=== PATIENT | male | born 1945 ===

== ENCOUNTER 2018-02-17 18:28 | Inpatient (IN) | payer MEDICARE ==
--- NOTE | 2018-02-17 20:52 | ED PDOC ---
HPI: Psych/Substance Abuse Time Seen by Provider: 02/17/18 19:12 Chief Complaint (Nursing): Psychiatric Evaluation History Per: Patient, Family History/Exam Limitations: no limitations Onset/Duration Of Symptoms: Days Current Symptoms Are (Timing): Still Present Modifying Factor(s): None Additional Complaint(s): Hx of vascular dementia, HTN, HLD, Alzheimer's brought in by family for psychiatric evaluation, family states that he has had a progressive decline in mental status over the past few months, repeating himself, sleeping during the day and staying up at night. Family states he has been increasingly more withdrawn, tired. States he complains of headaches and sleepiness. Denies chest pain, shortness of breath, or other symptoms currently. Past Medical History Reviewed: Historical Data, Nursing Documentation, Vital Signs Vital Signs: Last Vital Signs Temp 98.1 F 02/17/18 18:53 Pulse 70 02/17/18 18:53 Resp 18 02/17/18 18:53 BP 167/110 H 02/17/18 18:53 Pulse Ox 99 02/17/18 18:53 - Medical History PMH: Dementia, HTN - Family History Family History: States: Unknown Family Hx - Home Medications Home Medications: Ambulatory Orders Medication Instructions Recorded Amitriptyline [Elavil] 10 mg PO DAILY 02/17/18 Apixaban [Eliquis] 5 mg PO DAILY 02/17/18 Carvedilol [Coreg] 6.25 mg PO DAILY 02/17/18 Escitalopram [Lexapro] 10 mg PO DAILY 02/17/18 Lisinopril [Zestril] 10 mg PO DAILY 02/17/18 Meclizine [Antivert] 12.5 mg PO DAILY 02/17/18 Simvastatin [Simvastatin] 20 mg PO DAILY 02/17/18 Latanoprost 0.005% Opht [Xalatan 1 drop BOTHEYES HS 02/18/18 Opht] Amitriptyline [Elavil] 10 mg PO DAILY 02/19/18 Amitriptyline [Elavil] 50 mg PO HS 02/19/18 Bimatoprost [Lumigan] ml OP 02/19/18 Donepezil [Aricept] 5 mg PO HS 02/19/18 Gabapentin [Neurontin] 200 mg PO DAILY 02/19/18 Memantine [Namenda] 10 mg PO BID 02/19/18 Simvastatin [Zocor] 40 mg PO HS 02/19/18 Timolol 0.5% Ophth [Timoptic 0.5% 1 drop OU BID 02/19/18 Ophth Soln] - Allergies Allergies/Adverse Reactions: Allergies Allergy/AdvReac Type Severity Reaction Status Date / Time No Known Allergies Allergy Verified 02/18/18 04:45 Review of Systems ROS Statement: Except As Marked, All Systems Reviewed And Found Negative Neurological: Positive for: Confusion. Negative for: Numbness, Incoordination, Dizziness Physical Exam - Reviewed Nursing Documentation Reviewed: Yes Vital Signs Reviewed: Yes - Physical Exam Appears: Positive for: Well, Non-toxic, No Acute Distress Head Exam: Positive for: ATRAUMATIC, NORMAL INSPECTION, NORMOCEPHALIC Skin: Positive for: Normal Color, Warm, DRY Eye Exam: Positive for: EOMI, Normal appearance, PERRL ENT: Positive for: Normal ENT Inspection Neck: Positive for: Normal, Painless ROM Cardiovascular/Chest: Positive for: Regular Rate, Rhythm Respiratory: Positive for: CNT, Normal Breath Sounds Gastrointestinal/Abdominal: Positive for: Normal Exam, Soft Back: Positive for: Normal Inspection Extremity: Positive for: Normal ROM Neurologic/Psych: Positive for: Alert, enterprise business architect II-XII, Oriented, Mood/Affect ( withdrawn). Negative for: Motor/Sensory Deficits - Laboratory Results Result Diagrams: 02/18/18 06:04 02/17/18 20:40 - ECG O2 Sat by Pulse Oximetry: 99 Pulse Ox Interpretation: Normal Medical Decision Making Medical Decision MakinPM A/P: Hx of vascular dementia, HTN, HLD presenting with progressive cognitive decline -patient stable at this time, although widthdrawn into himself -patient will require medical clearance -will need crisis to evaluate -no SI/HI 2136 --CT head FINDINGS: Brain: [id number]-[id number] atrophy. No intracranial hemorrhage. No mass. No definite edema. Ventricles: No hydrocephalus. Bones/joints: No acute fracture. Soft tissues: Unremarkable. Vasculature: Minimal atherosclerotic disease of intracranial arteries. Sinuses: Scattered minimal to mild mucosal thickening. Mastoid air cells: No mastoid effusion. Orbits: Unremarkable as visualized. IMPRESSION: 1. No definite acute intracranial abnormality. 2. Incidental/non-acute findings are described above EKG shows afib, patient has a hx of "cardiac arrhythmia" on eliquis for it. Patient medically cleared for psychiatric admission. Patient accepted by [facility] Borja under Dr. Ruth with dx: of dementia. Disposition - Clinical Impression Clinical Impression: Dementia - Disposition Disposition: Routine/Home Disposition Time: 22:59 Condition: STABLE
[2018-02-17 21:12] LABS: BASO # 0.1 K/uL (0.0-0.2); BASO % 0.6 % (0.0-2.0); EOS # 0.5 K/uL (0.0-0.7); EOS % 4.7 % (0.0-4.0); HEMOGLOBIN 15.5 g/dL (12.0-18.0); LYMPH # 3.2 K/uL (1.0-4.3); LYMPH % 28.3 % (20.0-40.0); MEAN CELL VOLUME 85.6 fl (80.0-94.0); MEAN CORPUSCULAR HEMOGLOBIN 28.7 pg (27.0-31.0); MEAN CORPUSCULAR HGB CONC 33.5 g/dL (33.0-37.0); MEAN PLATELET VOLUME 10.3 fl (7.2-11.7); MONO % 9.2 % (0.0-10.0); NEUT # 6.5 K/uL (1.8-7.0); NEUT % 57.2 % (50.0-75.0); NRBC % 0.1 % (0.0-0.0); RBC 5.41 Mil/uL (4.40-5.90); RED CELL DISTRIBUTION WIDTH 14.3 % (11.5-14.5); WHITE BLOOD COUNT 11.3 K/uL (4.8-10.8)
[2018-02-17 21:15] LABS: SQUAMOUS EPITHIAL 1 /hpf (0-5); URINE BACTERIA RARE (<OCC); URINE BILIRUBIN NEGATIVE (NEGATIVE); URINE BLOOD LARGE (NEGATIVE); URINE CLARITY SLIGHTY-CLOUDY (Clear); URINE COLOR YELLOW (YELLOW); URINE GLUCOSE (UA) NEG (Normal); URINE LEUKOCYTE ESTERASE NEG Leu/uL (Negative); URINE PROTEIN 30 mg/dL (NEGATIVE); URINE UROBILINOGEN 0.2-1.0 mg/dL (0.2-1.0)
[2018-02-17 21:22] LABS: ACETAMINOPHEN < 10.0 ug/ml (10.0-30.0); BLOOD UREA NITROGEN 15 mg/dl (9-20); CALCIUM 9.9 mg/dL (8.4-10.2); GFR AFRICAN-AMERICAN > 60; GFR NON-AFRICAN AMERICAN > 60; SALICYLATE < 1.0 mg/dl
[2018-02-17 21:31] LABS: BARBITURATES, UR NEGATIVE (NEGATIVE); BENZODIAZEPINES, UR NEGATIVE (NEGATIVE); OPIATES, UR NEGATIVE (NEGATIVE); PHENCYCLIDINE, UR NEGATIVE (NEGATIVE)
--- NOTE | 2018-02-17 21:36 | CT ---
EXAM: CT Head Without Intravenous Contrast CLINICAL HISTORY: 72 years old, male; Signs and symptoms; Alteration of consciousness and altered mental status/memory loss and other: Increasing AMS confused; Other: Vascular dementia; Patient HX: HTN hld alzheimer's dementia; Additional info: Increasing confusion, HX of vascluar demtia TECHNIQUE: Axial computed tomography images of the head/brain without intravenous contrast. All CT scans at this facility use one or more dose reduction techniques, viz.: automated exposure control; ma/kV adjustment per patient size (including targeted exams where dose is matched to indication; i.e. head); or iterative reconstruction technique. Coronal and sagittal reformatted images were created and reviewed. COMPARISON: No relevant prior studies available. FINDINGS: Brain: Mqpw-za-glcauppi atrophy. No intracranial hemorrhage. No mass. No definite edema. Ventricles: No hydrocephalus. Bones/joints: No acute fracture. Soft tissues: Unremarkable. Vasculature: Minimal atherosclerotic disease of intracranial arteries. Sinuses: Scattered minimal to mild mucosal thickening. Mastoid air cells: No mastoid effusion. Orbits: Unremarkable as visualized. IMPRESSION: 1. No definite acute intracranial abnormality. 2. Incidental/non-acute findings are described above.
[2018-02-17 23:31] VITALS: O2SAT 99
[2018-02-18] MEDS ORDERED: Magnesium Hydroxide Susp 30 ml UD PO PRN (04:04)
[2018-02-18] MEDS ORDERED: Bismuth Subsalicylate 262 mg/15 ml Sus (240 ml) PO PRN (04:04)
[2018-02-18] MEDS ORDERED: Alum-Mag Hydrox-Simethicone Susp (30 mL) PO PRN (04:04)
--- NOTE | 2018-02-18 04:22 | PCM.BM ---
<AilinSaulMatt Montelongo - Last Filed: 02/18/18 04:21> Treatment Plan Problems - Problems identified on initial assessmt Hopelessness/Helplessness Date Initiated: 02/18/18 Time Initiated: 04:21 Assessment reference: NA Status: Active Treatment assets and liabiliti Patient Assests: adapts well, cooperative, good support system, negotiates basic needs Patient Liabilities: imparied memory - Milieu Protocol Maintain good personal hygiene: daily Encourage regular showers, daily Remind patient to perform daily oral care, daily Assist patient to perform ADL's Conduct patient checks and document Observation sheet: Q15 minutes Maintain personal safety: every shift Educate patient to report safety concerns to staff, every shift Monitor environment for contraband/sharps Medication safety: Monitor for expected outcome, potential side effects: every shift, Assess barriers to learning: every shift, Assess readiness for medication education: every shift <Cindy Carlton - Last Filed: 02/19/18 09:23> - Diagnosis (1) Dementia with behavioral disturbance Status: Acute Interventions: Medication management, Individual and group therapy, Psychoeducation 02/19/18 09:23 (2) Depressive disorder Status: Acute Interventions: Medication management, Individual and group therapy, Psychoeducation 02/19/18 09:23 <Jessica Duffy M - Last Filed: 02/19/18 12:54> Family Contact Family involvement: Family/SO is involved Family contact: Patient agrees to contact, Family has been contacted by patient , Telephone contact initiated by staff Family contact name: Wilbert (brother) Family contacted how many times per week?: 2 - Outside Agency Dr. Irasema Souza MD Care involvment: Information-sharing Agency contact number: [phone] - Goals for Treatment Patient goals for treatment: Pt to be encouraged to attend activity and clinical groups 3-5x per week to identify at least 2 contributing factors to depression and suicide attempt. Psycho-education to be provided to patient/ family regarding benefits of medications and treatment adherence. Pt to be encouraged to participate in group milieu to develop effective coping skills to reduce depression and free of suicide ideation. Coordinate discharge resource needs by providing referral for psychiatric treatment follow up in the community. Discharge/Continuing Care - Education Needs Education Needs: Family Medication, Family Diagnosis/Disease Process, Family Coping Skills, Family Placement options, Family Community resources, Family Activities of Daily Living, Family Personal Hygiene/Grooming, Family Aftercare Safety Plan, Patient Medication, Patient Diagnosis/Disease Process, Patient Coping Skills, Patient Placement options, Patient Community resources, Patient Activities of Daily Living, Patient Personal Hygiene/Grooming, Patient Aftercare Safety Plan - Discharge Discharge Criteria: Tolerates medication w/o severe side effects, Free of agitation, Normal sleep pattern, Ability to care for self, Reduction of target symptoms Discharge to:: Home, With Family - Additional Comments 02/19/18 12:31 Pt seen and discussed in team meeting. Reason for hospitalization reviewed and discussed at length. Pt reported he was referred to the ED by his [facility] psychiatrist, Dr. Irasema Souza MD. Pt reported feeling depressed due to increased memory loss and confusion. Pt reported that he is aware that he is forgetting things and that he cannot leave the house alone. Pt reported that he is tired of his family always having to be with him and telling him what to do. Pt reported that he has been seeing a psychiatrist and a neurologist; however, he feels like his memory is worsening. Pt reported compliance with medication prior to hospitalization; however, cannot recall the name of his medications. Pt 's social and medical issues reviewed and discussed. Pt's medications reviewed and pt's pharmacy provided. RN to contact pharmacy and obtain list of most recent medications. Tx plan reviewed; pt agreeable. Pt provided appeals writer with written consent to speak to his brother, Wilbert and verbal authorization to speak to his psychiatrist, Dr. Harley MD. SW to continue to follow case. - Treatment Team Participation Discussed with Family/SO: No Was Patient/Family/SO present at Treatment Team Meeting: Yes
[2018-02-18 07:34] LABS: HEMOGLOBIN 14.9 g/dL (12.0-18.0); MEAN CELL VOLUME 86.4 fl (80.0-94.0); MEAN CORPUSCULAR HEMOGLOBIN 28.5 pg (27.0-31.0); RBC 5.22 Mil/uL (4.40-5.90); RED CELL DISTRIBUTION WIDTH 14.2 % (11.5-14.5); WHITE BLOOD COUNT 8.3 K/uL (4.8-10.8)
[2018-02-18 08:05] LABS: T4 7.98 ug/dl (5.5-11.0)
[2018-02-18 08:22] LABS: FERRITIN 94.6 ng/Ml (17.9-464)
[2018-02-18] MEDS ORDERED: Patient's Own Med (Simvastatin [Simvastatin] 20 MG) PO SCH (09:00)
--- NOTE | 2018-02-18 09:11 | RAD ---
PROCEDURE: CHEST RADIOGRAPH, 1 VIEW HISTORY: confused COMPARISON: None available. FINDINGS: LUNGS: The lungs are hyperinflated and there is peribronchial thickening with chronic changes in both lungs. No focal consolidation. PLEURA: No pneumothorax or pleural fluid seen. CARDIOVASCULAR: Normal. OSSEOUS STRUCTURES: No significant abnormalities. VISUALIZED UPPER ABDOMEN: Normal. OTHER FINDINGS: None. IMPRESSION: No active pulmonary disease. COPD.
[2018-02-18 09:54] LABS: IRON 103 ug/dL (49-181)
[2018-02-18 10:03] LABS: % IRON SATURATION 34 % (20-55); TOTAL IRON BINDING CAPACITY 306 ug/dL (250-450)
--- NOTE | 2018-02-18 13:23 | CP.PCM.CON ---
History of Present Illness - History of Present Illness History of Present Illness: CC: Dementia This is a 72 year old male with past medical history of chronic atrial fibrillation anticoagulated on Eliquis, essential hypertension, hyperlipidemia, prostate cancer for many years, and Alzheimer's dementia, who was admitted to inpatient psychiatry for progressively worsening deline in his mental functioning over the last several months. The patient is denying any new recent illnesses or problems, however history taking is limited due to his dementia. He denies any chest pain, shortness of breath, palpitatoins, nausea, vomiting, diarrhea currently. Review of Systems - Review of Systems Review of Systems: A 12 point review of systems was conducted and found to be negative other than what was mentioned in the HPI. Past Patient History - Past Social History Smoking Status: Former Smoker - CARDIAC Hx Atrial Fibrillation: Yes Hx Hypercholesterolemia: Yes Hx Hypertension: Yes - PULMONARY Hx Tuberculosis: No - NEUROLOGICAL Hx Dementia: Yes - HEMATOLOGICAL/ONCOLOGICAL Hx Cancer: Yes (history of prostate Ca) - MUSCULOSKELETAL/RHEUMATOLOGICAL Hx Falls: No - GASTROINTESTINAL Hx Gastrointestinal Disorders: Yes - GENITOURINARY/GYNECOLOGICAL Hx Prostate Cancer: Yes (history) - PSYCHIATRIC Hx Substance Use: Yes (history of cocaine use) - ANESTHESIA Hx Anesthesia: Yes Meds Allergies/Adverse Reactions: Allergies Allergy/AdvReac Type Severity Reaction Status Date / Time No Known Allergies Allergy Verified 02/18/18 04:45 - Medications Medications: Current Medications Acetaminophen (Tylenol 325mg Tab) 650 mg PO Q4 PRN PRN Reason: Pain, moderate (4-7) Al Hydrox/Mg Hydrox/Simethicone (Maalox Plus 30 Ml) 30 ml PO Q4 PRN PRN Reason: Dyspepsia Apixaban (Eliquis) 5 mg PO DAILY [facility] PRN Reason: Protocol Last Admin: 02/18/18 09:42 Dose: 5 mg Atorvastatin Calcium (Lipitor) 10 mg PO DAILY [facility] Last Admin: 02/18/18 09:45 Dose: 10 mg Bismuth Subsalicylate (Pepto-Bismol) 524 mg PO Q4 PRN PRN Reason: Diarrhea Carvedilol (Coreg) 6.25 mg PO DAILY [facility] Last Admin: 02/18/18 09:45 Dose: 6.25 mg Lisinopril (Zestril) 10 mg PO DAILY [facility] Last Admin: 02/18/18 09:44 Dose: 10 mg Lorazepam (Ativan) 0.5 mg PO HS PRN PRN Reason: Insomnia Stop: 03/04/18 04:05 Lorazepam (Ativan) 0.5 mg PO Q6 PRN PRN Reason: Anixety/Agitation Stop: 03/04/18 04:05 Magnesium Hydroxide (Milk Of Magnesia) 30 ml PO HS PRN PRN Reason: Constipation Meclizine HCl (Antivert) 12.5 mg PO DAILY [facility] Physical Exam - Additional Findings Additional findings: Physical exam: Constitutional- cooperative, awake, alert Head- NCAT, PERRL Eye- PERRL, EOMI ENT- normal exam, MMM. Neck- normal inspection, supple, no JVD Respiratory- CTAB, no wheezes rales rhonchi Cardiovascular- irregular rate and rhythm, +S1, +S2 no MRG GI/Abdominal- normal bowel sounds, soft, no mass, no hsm Skin- warm, dry Extremities Exam- normal capillary refill, normal inspection Neurological Exam- alert, awake, oriented Psych- normal mood, normal affect Results - Vital Signs Recent Vital Signs: Last Vital Signs Temp 97.2 F L 02/18/18 06:00 Pulse 79 02/18/18 09:45 Resp 18 02/18/18 06:00 BP 144/90 02/18/18 12:00 Pulse Ox 99 02/17/18 23:37 - Labs Result Diagrams: 02/18/18 06:04 02/17/18 20:40 Labs: Laboratory Results - last 24 hr 02/17/18 02/17/18 02/17/18 20:40 20:40 20:40 WBC 11.3 H RBC 5.41 Hgb 15.5 Hct 46.3 MCV 85.6 MCH 28.7 MCHC 33.5 RDW 14.3 Plt Count 204 MPV 10.3 Neut % (Auto) 57.2 Lymph % (Auto) 28.3 [place] % (Auto) 9.2 Eos % (Auto) 4.7 H Baso % (Auto) 0.6 Neut # (Auto) 6.5 Lymph # (Auto) 3.2 [place] # (Auto) 1.0 H Eos # (Auto) 0.5 Baso # (Auto) 0.1 Sodium 144 Potassium 3.8 Chloride 102 Carbon Dioxide 24 Anion Gap 22 H BUN 15 Creatinine 0.7 L Est GFR ( Amer) > 60 Est GFR (Non-Af Amer) > 60 Random Glucose 132 H Calcium 9.9 Iron TIBC % Saturation Ferritin Triglycerides Cholesterol LDL Cholesterol Direct HDL Cholesterol Vitamin B12 Free T4 Thyroxine (T4) TSH 3rd Generation Urine Color Urine Clarity Urine pH Ur Specific [place] Urine Protein Urine Glucose (UA) Urine Ketones Urine Blood Urine Nitrate Urine Bilirubin Urine Urobilinogen Ur Leukocyte Esterase Urine RBC (Auto) Urine Microscopic WBC Ur Squamous Epith Cells Urine Bacteria Salicylates < 1.0 Urine Opiates Screen Urine Methadone Screen Acetaminophen < 10.0 L Ur Barbiturates Screen Ur Phencyclidine Scrn Ur Amphetamines Screen U Benzodiazepines Scrn U Oth Cocaine Metabols U Cannabinoids Screen Alcohol, Quantitative < 10 02/17/18 02/17/18 02/18/18 20:40 20:40 06:04 WBC 8.3 RBC 5.22 Hgb 14.9 Hct 45.1 MCV 86.4 MCH 28.5 MCHC 33.0 RDW 14.2 Plt Count 188 MPV Neut % (Auto) Lymph % (Auto) [place] % (Auto) Eos % (Auto) Baso % (Auto) Neut # (Auto) Lymph # (Auto) [place] # (Auto) Eos # (Auto) Baso # (Auto) Sodium Potassium Chloride Carbon Dioxide Anion Gap BUN Creatinine Est GFR ( Amer) Est GFR (Non-Af Amer) Random Glucose Calcium Iron TIBC % Saturation Ferritin Triglycerides Cholesterol LDL Cholesterol Direct HDL Cholesterol Vitamin B12 Free T4 Thyroxine (T4) TSH 3rd Generation Urine Color Yellow Urine Clarity Slighty-cloudy Urine pH 5.0 Ur Specific [place] 1.021 Urine Protein 30 Urine Glucose (UA) Neg Urine Ketones Negative Urine Blood Large Urine Nitrate Negative Urine Bilirubin Negative Urine Urobilinogen 0.2-1.0 Ur Leukocyte Esterase Neg Urine RBC (Auto) 40 H Urine Microscopic WBC 1 Ur Squamous Epith Cells 1 Urine Bacteria Rare Salicylates Urine Opiates Screen Negative Urine Methadone Screen Negative Acetaminophen Ur Barbiturates Screen Negative Ur Phencyclidine Scrn Negative Ur Amphetamines Screen Negative U Benzodiazepines Scrn Negative U Oth Cocaine Metabols Negative U Cannabinoids Screen Negative Alcohol, Quantitative 02/18/18 02/18/18 02/18/18 06:04 06:04 06:04 WBC RBC Hgb Hct MCV MCH MCHC RDW Plt Count MPV Neut % (Auto) Lymph % (Auto) [place] % (Auto) Eos % (Auto) Baso % (Auto) Neut # (Auto) Lymph # (Auto) [place] # (Auto) Eos # (Auto) Baso # (Auto) Sodium Potassium Chloride Carbon Dioxide Anion Gap BUN Creatinine Est GFR ( Amer) Est GFR (Non-Af Amer) Random Glucose Calcium Iron 103 TIBC 306 % Saturation 34 Ferritin 94.6 Triglycerides 140 Cholesterol 181 LDL Cholesterol Direct 106 HDL Cholesterol 35 Vitamin B12 461 Free T4 1.03 Thyroxine (T4) 7.98 TSH 3rd Generation 1.64 Urine Color Urine Clarity Urine pH Ur Specific [place] Urine Protein Urine Glucose (UA) Urine Ketones Urine Blood Urine Nitrate Urine Bilirubin Urine Urobilinogen Ur Leukocyte Esterase Urine RBC (Auto) Urine Microscopic WBC Ur Squamous Epith Cells Urine Bacteria Salicylates Urine Opiates Screen Urine Methadone Screen Acetaminophen Ur Barbiturates Screen Ur Phencyclidine Scrn Ur Amphetamines Screen U Benzodiazepines Scrn U Oth Cocaine Metabols U Cannabinoids Screen Alcohol, Quantitative Assessment & Plan - Assessment and Plan (Free Text) Plan: ASSESSMENT/PLAN 1) Chronic atrial fibrillation - Continue Eliquis 5 mg po daily - Continue Coreg 6.25 mg po daily for rate control - stable 2) Hyperlipidemia Continue Lipitor 10 mg po daily 3) Essential hypertension - Continue Lisinopril 10 mg po daily - Coreg 4) Prostate cancer, chronic - evidence of hematuria in urinalysis, likely from Eliquis - Hg stable 5) Alzheimer's dementia with progressive decline - management as per psychiatry
[2018-02-18] MEDS ORDERED: guaiFENesin DM 200 mg-20 mg/10 ml UD PO PRN (17:26)
[2018-02-18] MEDS: Latanoprost 0.005% Opht SOUTION OU SCH (21:17)
--- NOTE | 2018-02-19 09:00 | CARD ---
APPROVED REPORT EKG Measurement Heart [id number] <Conclusion> Atrial fibrillation Abnormal ECG
--- NOTE | 2018-02-19 11:12 | PCM.PSYCH ---
Initial Psychiatric Evaluation - Initial Psychiatric Evaluation Type of Admission: Voluntary Legal Status: Capacity Chief Complaint (in patient's own words): "I'm depressed." Patient's Reaction to Hospitalization: HPI: 72 yo male w/ h/o Vascular Dementia, presents with worsening depression, memory loss, decline in functioning and irritability. As per note sent by patient's psychiatrist, patient presented w/ depressed mood, anhedonia, hopelessness, helplessness, fatigue, poor attention and concentration, insomnia and complete lack of motivation. No AH/VH/paranoia/SI/HI. Patient seems to have poor compliance with medications due to memory deficits. Collateral from ER: CW (CESAR) met with pt's nephew, Fran Webb [phone], whom reported that he brought pt in today because he was referred by his psychiatrist (Irasema Souza) as she has concerns for pt's safety. Mr. Webb reported amalia pt has Vascular Dementia. As per Mr. Webb, pt presented has reported depressed mood, anhedonia, hopelessness, helplessness, fatigue poor attention and concentration, insomnia, and complete lack of motivation. Pt's nephew showed CW records of recent visit to the neurologist (Maria Elena Lebron M.D) who wrote on a medical report stating that pt presented with memory loss, reported feeling confused in very occasions , and he talks repeatedly about the same subject, and he is having frequent nightmares, and possible visual hallucinations. Pt's nephew reported that the family is doing the best they can to provide assistance to pt in relation to his medical and psychiatric problems , but they are concern that pt would cannot long care for himself, in safely manner. PPHx: H/o outpatient treatment w. Dr. 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; from [place]; 2 adult children, not , lives w/ brother; denies h/o abuse ALL: NKDA Current Medications: Active Medications Generic Name Dose Route Start Last Admin Trade Name Freq PRN Reason Stop Dose Admin Acetaminophen 650 mg 02/18/18 04:04 Tylenol 325mg Tab PO Q4 PRN Pain, moderate (4-7) Al Hydrox/Mg Hydrox/Simethicone 30 ml 02/18/18 04:04 Maalox Plus 30 Ml PO Q4 PRN Dyspepsia Apixaban 5 mg 02/18/18 09:00 02/19/18 09:08 Eliquis PO 5 mg DAILY FREDA Administration Protocol Atorvastatin Calcium 10 mg 02/19/18 22:00 Lipitor PO HS FREDA Bismuth Subsalicylate 524 mg 02/18/18 04:04 Pepto-Bismol PO Q4 PRN Diarrhea Carvedilol 6.25 mg 02/18/18 09:00 02/19/18 09:07 Coreg PO 6.25 mg DAILY FREDA Administration Escitalopram Oxalate 10 mg 02/19/18 09:30 Lexapro PO DAILY [facility] Guaifenesin/Dextromethorphan 10 ml 02/18/18 17:26 02/18/18 21:18 Robitussin Dm PO 10 ml Q6 PRN Administration Cough Latanoprost 1 drop 02/18/18 22:00 02/18/18 21:17 Xalatan Opht OU 1 drop HS FREDA Administration Lisinopril 10 mg 02/18/18 09:00 02/19/18 09:08 Zestril PO 10 mg DAILY FREDA Administration Lorazepam 0.5 mg 02/18/18 04:04 Ativan PO 03/04/18 04:05 HS PRN Insomnia Lorazepam 0.5 mg 02/18/18 04:04 Ativan PO 03/04/18 04:05 Q6 PRN Anixety/Agitation Magnesium Hydroxide 30 ml 02/18/18 04:04 Milk Of Magnesia PO HS PRN Constipation Meclizine HCl 12.5 mg 02/19/18 09:00 02/19/18 09:07 Antivert PO 12.5 mg DAILY [facility] Administration Memantine 5 mg 02/19/18 09:30 Namenda PO DAILY [facility] Past Psychiatric History - Past Psychiatric History Pertinent Medical Hx (Current Medical&Sleep Prob, Allergies): Allergies Allergy/AdvReac Type Severity Reaction Status Date / Time No Known Allergies Allergy Verified 02/18/18 04:45 Amitriptyline [Elavil] 10 mg PO DAILY 02/17/18 Apixaban [Eliquis] 5 mg PO DAILY 02/17/18 Carvedilol [Coreg] 6.25 mg PO DAILY 02/17/18 Escitalopram [Lexapro] 10 mg PO DAILY 02/17/18 Lisinopril [Zestril] 10 mg PO DAILY 02/17/18 Meclizine [Antivert] 12.5 mg PO DAILY 02/17/18 Simvastatin [Simvastatin] 20 mg PO DAILY 02/17/18 Latanoprost 0.005% Opht [Xalatan Opht] 1 BOTHEYES HS 02/18/18 Review of Systems - Neurological Neurological: Memory Loss - Psychiatric Psychiatric: As Per HPI, Abnormal Sleep Pattern, Anhedonia, Behavioral Changes, Change in Appetite, Depression, Difficulty Concentrating, Irritability, Memory Loss, Mood Swings Mental Status Examination - Personal Presentation Personal Presentation: Looks stated age - Affect Affect: Constricted, Depressed - Motor Activity Motor Activity: Calm - Reliability in Providing Information Reliability in Providing Information: Poor, due to cognitve impairment - Speech Speech: Coherent - Mood Mood: Depressed - Formal Thought Process Formal Thought Process: Other (Takes excessive time to finish sentences) - Hallucinations/Delusions Additional comments: Denies AH/VH/paranoia/delusions - Obsessions/Compulsions Obsessions: No Compulsions: No - Cognitive Functions Orientation: Person, Place ("Hospital"), Situation Sensorium: Alert Attention/Concentration: Easily distracted Judgement: Intact, as evidence by: Insight regarding need for hospitalization Memory: Recent impaired, as evidence by: Inability to recall events of the day, Recent imparied as evidence by:Inability to complete 3/3 object recall, Remote impaired as evidenced by: Inability to recall sig life events, Remote impaired as evidenced by: Inability to recall historical events - Risk Risk: Diminished functioning - Strength & Assets Inventory Strength & Assets Inventory: Family support, Cooperative - Limitations Limitations: Decreased memory, recent DSM 5 DX - DSM 5 DSM 5 Diagnosis: Vascular dementia w/ behavioral disturbance; Depressive Disorder - Recommended/Plan of Treatment Treatment Recommendations and Plan of Treatment: Vascular dementia w/ behavioral disturbance; Depressive Disorder -Admit to geriatric psychiatry unit -Individual and group therapy -Psychoeducation -Restart Lexapro 10 mg PO Daily -Increase Amitriptyline to 75 mg PO HS -Restart Aricept and Namenda -Medicine consult -Psychology consult -Disposition planning Projected ELOS: 5-10 days Discharge Plan and Discharge Criteria: Discharge when patient is psychiatrically stable
[2018-02-19 17:51] LABS: FOLATE 15.7 ng/mL
[2018-02-19] MEDS: Latanoprost 0.005% Opht SOUTION OU SCH (21:07)
[2018-02-19] MEDS ORDERED: Latanoprost 0.005% Opht SOUTION OU SCH (23:45)
[2018-02-20] MEDS ORDERED: Pneumococcal 23-Valent Vaccine IM ONE (06:24)
--- NOTE | 2018-02-20 09:27 | PCM.PYCHPN ---
Psychiatric Progress Note - Psychiatric Progress Note Patient seen today, length of contact: Patient evaluated, case discussed with team, chart reviewed Patient Chief Complaint: "I'm depressed." Problems Identified/Issues Discussed: Patient continues to report that he continues to feel depressed. He is concerned about his dementia and taking so many medications. We reviewed his medications and treatment options. We discussed the importance of compliance with treatment, medications and brain exercises to improve cognitive function. Medication Change: No Medical Record Reviewed: Yes Consults ordered or reviewed: Medicine consult, Physical Therapy Mental Status Examination - Cognitive Function Orientation: Person, Place ("Hospital"), Situation Memory: Intact Association: WNL Fund of Knowledge: [facility] Decription of patient's judgement and insights: Fair I/J - Mood Mood: Depressed - Affect Affect: Constricted, Depressed - Formal Thought Process Formal Thought Process: Other (Takes excessive time to finish sentences) Psychotic Thoughts and Behaviors: No AH/VH/paranoia/delusions - Suicidal Ideation Suicidal Ideation: No - Homicidal Ideation Homicidal Ideation: No Goal/Treatment Plan - Goal/Treatment Plan Need for Continued Stay: Remain at risks for inpatient hospitalization, Severe depression anxiety, Discharge may exacerbated symptoms Progress Toward Problem(s) and Goals/Treatment Plan: Vascular dementia w/ behavioral disturbance; Depressive Disorder -Individual and group therapy -Psychoeducation -Continue Lexapro 10 mg PO Daily -Continue Amitriptyline 75 mg PO HS -Continue Aricept and Namenda -Medicine consult -Physical Therapy -Psychology consult -Disposition planning Estimated Date of D/C: 02/26/18
[2018-02-20] MEDS ORDERED: Patient's Own Med (Bimatoprost [Lumigan] 1 DROP) AU SCH (18:00)
[2018-02-20] MEDS: Latanoprost 0.005% Opht SOUTION OU SCH (21:12)
--- NOTE | 2018-02-21 09:26 | PCM.PYCHPN ---
Psychiatric Progress Note - Psychiatric Progress Note Patient seen today, length of contact: Patient evaluated, case discussed with team, chart reviewed Patient Chief Complaint: "I'm depressed." Problems Identified/Issues Discussed: Patient continues to report that he continues to feel depressed and hopeless w/ poor sleep. He denies adverse effects to medications. We discussed the importance of compliance with outpatient therapy and medications. He has been participating in group therapy. No AH/VH/SI/HI. Medication Change: No Medical Record Reviewed: Yes Consults ordered or reviewed: Medicine consult, Physical Therapy Mental Status Examination - Cognitive Function Orientation: Person, Place ("Hospital"), Situation Memory: Intact Association: [facility] Fund of Knowledge: [facility] Decription of patient's judgement and insights: Fair I/J - Mood Mood: Depressed - Affect Affect: Constricted, Depressed - Formal Thought Process Formal Thought Process: Other (Takes excessive time to finish sentences) Psychotic Thoughts and Behaviors: No AH/VH/paranoia/delusions - Suicidal Ideation Suicidal Ideation: No - Homicidal Ideation Homicidal Ideation: No Goal/Treatment Plan - Goal/Treatment Plan Need for Continued Stay: Remain at risks for inpatient hospitalization, Severe depression anxiety, Discharge may exacerbated symptoms Progress Toward Problem(s) and Goals/Treatment Plan: Vascular dementia w/ behavioral disturbance; Depressive Disorder -Individual and group therapy -Psychoeducation -Continue Lexapro 10 mg PO Daily -Continue Amitriptyline 75 mg PO HS -Continue Aricept and Namenda -Medicine consult -Physical Therapy -Psychology consult -Disposition planning Estimated Date of D/C: 02/23/18
[2018-02-21] MEDS: Latanoprost 0.005% Opht SOUTION OU SCH (21:04)
--- NOTE | 2018-02-22 10:27 | PCM.PYCHPN ---
Psychiatric Progress Note - Psychiatric Progress Note Patient seen today, length of contact: Patient evaluated, case discussed with team, chart reviewed Patient Chief Complaint: "I'm depressed." Problems Identified/Issues Discussed: Patient reports that his mood is improving. SW spoke to patient's brother who will help the patient due to the patient's memory deficits. Patient does not want to increase any medications at this time and reports that he has difficulty keeping track of his medications. We discussed strategies to increase medication compliance. He has been participating in group therapy. No AH/VH/SI/HI. Medication Change: No Medical Record Reviewed: Yes Consults ordered or reviewed: Medicine consult, Physical Therapy Mental Status Examination - Cognitive Function Orientation: Person, Place, Situation Memory: Impaired Association: WNL Fund of Knowledge: [facility]N Decription of patient's judgement and insights: Fair I/J - Mood Mood: Neutral - Affect Affect: Constricted - Formal Thought Process Formal Thought Process: No Impairment Psychotic Thoughts and Behaviors: No AH/VH/paranoia/delusions - Suicidal Ideation Suicidal Ideation: No - Homicidal Ideation Homicidal Ideation: No Goal/Treatment Plan - Goal/Treatment Plan Need for Continued Stay: Severe depression anxiety, Discharge may exacerbated symptoms Progress Toward Problem(s) and Goals/Treatment Plan: Vascular dementia w/ behavioral disturbance; Depressive Disorder -Individual and group therapy -Psychoeducation -Continue Lexapro 10 mg PO Daily -Continue Amitriptyline 75 mg PO HS -Continue Namenda -Medicine consult -Physical Therapy -Psychology consult -Disposition planning Estimated Date of D/C: 02/23/18
[2018-02-22] MEDS: Latanoprost 0.005% Opht SOUTION OU SCH (21:16)
[2018-02-23 06:00] VITALS: BP 132/86; PULSE 82; RESP 18; TEMP 97.7
--- NOTE | 2018-02-23 11:37 | CP.PCM.CON ---
History of Present Illness - History of Present Illness History of Present Illness: Pt is a 72 year old male admitted to the geropsych unit and referred to the policy writer typist for evaluaion. ON the DRS 2, pt scored an overal score of 92. Pt scored in the Deficient Range on all tasks. Pt's Attention, Memory, Initiation , Construction, and Conceptualization skills all fell in the Severely Impaired Range. Overall 92 Attention 2nd perentile Construction 3-5th percentile Initiation 1st percentile Conceptualization 1st percentile Memory 1st percentile Severe deficits noted on this evaluation; Past Patient History - Past Social History Smoking Status: Former Smoker - CARDIAC Hx Hypertension: Yes - PULMONARY Hx Tuberculosis: No - NEUROLOGICAL Hx Dementia: Yes - HEMATOLOGICAL/ONCOLOGICAL Hx Cancer: Yes (history of prostate Ca) - MUSCULOSKELETAL/RHEUMATOLOGICAL Hx Falls: No - GASTROINTESTINAL Hx Gastrointestinal Disorders: Yes - GENITOURINARY/GYNECOLOGICAL Hx Prostate Cancer: Yes (history) - PSYCHIATRIC Hx Substance Use: Yes (history of cocaine use) - ANESTHESIA Hx Anesthesia: Yes Meds Allergies/Adverse Reactions: Allergies Allergy/AdvReac Type Severity Reaction Status Date / Time No Known Allergies Allergy Verified 02/18/18 04:45 - Medications Medications: Current Medications Amitriptyline HCl (Elavil) 75 mg PO [facility] Last Admin: 02/22/18 21:16 Dose: 75 mg Apixaban (Eliquis) 5 mg PO DAILY [facility] PRN Reason: Protocol Last Admin: 02/23/18 08:51 Dose: 5 mg Atorvastatin Calcium (Lipitor) 10 mg PO HS [facility] Last Admin: 02/22/18 21:17 Dose: 10 mg Carvedilol (Coreg) 6.25 mg PO DAILY [facility] Last Admin: 02/23/18 08:52 Dose: 6.25 mg Escitalopram Oxalate (Lexapro) 10 mg PO DAILY [facility] Last Admin: 02/23/18 08:50 Dose: 10 mg Latanoprost (Xalatan Opht) 1 drop OU HS [facility] Last Admin: 02/22/18 21:16 Dose: 1 drop Lisinopril (Zestril) 10 mg PO DAILY [facility] Last Admin: 02/23/18 08:50 Dose: 10 mg Meclizine HCl (Antivert) 12.5 mg PO DAILY [facility] Last Admin: 02/23/18 08:53 Dose: 12.5 mg Memantine (Namenda) 10 mg PO BID [facility] Last Admin: 02/23/18 08:52 Dose: 10 mg Timolol Maleate [facility]) 1 drop OU BID [facility] Last Admin: 02/23/18 08:51 Dose: 1 drop Results - Vital Signs Recent Vital Signs: Last Vital Signs Temp 97.7 F 02/23/18 05:59 Pulse 82 02/23/18 08:52 Resp 18 02/23/18 05:59 BP 132/86 02/23/18 08:52 Pulse Ox 99 02/22/18 05:18 - Labs Result Diagrams: 02/18/18 06:04 02/17/18 20:40
--- NOTE | 2018-02-23 11:48 | CP.PCM.CON ---
History of Present Illness - History of Present Illness History of Present Illness: Pt is a 72 year old female admitted to the geropsych unit and referred to the development writer for evaluation. On the DRS 2, pt scored an overall score of 111. Pt scored in the low end of Normal limits on Attention and Initiation tasks ( Scaled Scores of 8). Pt scored in the Deficient Range on Construction, Conceptualization, and memory skills. Attention- low end of normal range Initiation- low end of normal range Construction 1> percentile Conceptualization 3rd percentile Memory 1st percentile Significant deficits evident in construction, conceptualization and memory. Thank you for this referral, Dr. Paz Past Patient History - Past Social History Smoking Status: Former Smoker - CARDIAC Hx Hypertension: Yes - PULMONARY Hx Tuberculosis: No - NEUROLOGICAL Hx Dementia: Yes - HEMATOLOGICAL/ONCOLOGICAL Hx Cancer: Yes (history of prostate Ca) - MUSCULOSKELETAL/RHEUMATOLOGICAL Hx Falls: No - GASTROINTESTINAL Hx Gastrointestinal Disorders: Yes - GENITOURINARY/GYNECOLOGICAL Hx Prostate Cancer: Yes (history) - PSYCHIATRIC Hx Substance Use: Yes (history of cocaine use) - ANESTHESIA Hx Anesthesia: Yes Meds Allergies/Adverse Reactions: Allergies Allergy/AdvReac Type Severity Reaction Status Date / Time No Known Allergies Allergy Verified 02/18/18 04:45 - Medications Medications: Current Medications Amitriptyline HCl (Elavil) 75 mg PO [facility] Last Admin: 02/22/18 21:16 Dose: 75 mg Apixaban (Eliquis) 5 mg PO DAILY [facility] PRN Reason: Protocol Last Admin: 02/23/18 08:51 Dose: 5 mg Atorvastatin Calcium (Lipitor) 10 mg PO HS [facility] Last Admin: 02/22/18 21:17 Dose: 10 mg Carvedilol (Coreg) 6.25 mg PO DAILY [facility] Last Admin: 02/23/18 08:52 Dose: 6.25 mg Escitalopram Oxalate (Lexapro) 10 mg PO DAILY [facility] Last Admin: 02/23/18 08:50 Dose: 10 mg Latanoprost (Xalatan Opht) 1 drop OU [facility] Last Admin: 02/22/18 21:16 Dose: 1 drop Lisinopril (Zestril) 10 mg PO DAILY [facility] Last Admin: 02/23/18 08:50 Dose: 10 mg Meclizine HCl (Antivert) 12.5 mg PO DAILY [facility] Last Admin: 02/23/18 08:53 Dose: 12.5 mg Memantine (Namenda) 10 mg PO BID [facility] Last Admin: 02/23/18 08:52 Dose: 10 mg Timolol Maleate (Timoptic 0.5% [facility]) 1 drop OU BID [facility] Last Admin: 02/23/18 08:51 Dose: 1 drop Results - Vital Signs Recent Vital Signs: Last Vital Signs Temp 97.7 F 02/23/18 05:59 Pulse 82 02/23/18 08:52 Resp 18 02/23/18 05:59 BP 132/86 02/23/18 08:52 Pulse Ox 99 02/22/18 05:18 - Labs Result Diagrams: 02/18/18 06:04 02/17/18 20:40
--- NOTE | 2018-02-23 12:29 | PCM.PYCHDC ---
Mental Status Examination - Mental Status Examination Orientation: Person, Place, Situation Memory: Impaired Mood: Neutral Affect: Broad Speech: Appropriate Attention: Poor Concentration: Poor Association: WNL Fund of Knowledge: Poor Formal Thought Process: No Impairment Description of patient's judgement and insight: I/J limited by cognitive impairment; patient will be cared for by his brother Psychotic Thoughts and Behaviors: No AH/VH/paranoia/delusions Suicidal Ideation: No Current Homicidal Ideation?: No Discharge Summary - Discharge Note Reason for Hospitalization: HPI: 72 yo male w/ h/o Vascular Dementia, presents with worsening depression, memory loss, decline in functioning and irritability. As per note sent by patient's psychiatrist, patient presented w/ depressed mood, anhedonia, hopelessness, helplessness, fatigue, poor attention and concentration, insomnia and complete lack of motivation. No AH/VH/paranoia/SI/HI. Patient seems to have poor compliance with medications due to memory deficits. Collateral from ER: CW (CESAR) met with pt's nephew, Fran Webb [phone], whom reported that he brought pt in today because he was referred by his psychiatrist (Irasema Souza) as she has concerns for pt's safety. Mr. Webb reported amalia pt has Vascular Dementia. As per Mr. Webb, pt presented has reported depressed mood, anhedonia, hopelessness, helplessness, fatigue poor attention and concentration, insomnia, and complete lack of motivation. Pt's nephew showed CW records of recent visit to the neurologist (Maria Elena Lebron M.D) who wrote on a medical report stating that pt presented with memory loss, reported feeling confused in very occasions , and he talks repeatedly about the same subject, and he is having frequent nightmares, and possible visual hallucinations. Pt's nephew reported that the family is doing the best they can to provide assistance to pt in relation to his medical and psychiatric problems , but they are concern that pt would cannot long care for himself, in safely manner. PPHx: H/o outpatient treatment w. Dr. Souza PMHx: Chronic Afib on Eliquis, HTN, HLD, Prostate CA, Vascular Dementia SHx: Last used cocaine 8-12 months ago; denies current usage; retired; used to own a [employer]; from [place]; 2 adult children, not , lives w/ brother; denies h/o abuse ALL: NKDA Consultations:: List each consultation separately and include: 1. Reason for request. 2. Findings. 3. Follow-up Consultations: Medicine consult, Physical Therapy Psychology consult: Pt is a 72 year old male admitted to the geropsych unit and referred to the music writer for evaluaion. ON the DRS 2, pt scored an overal score of 92. Pt scored in the Deficient Range on all tasks. Pt's Attention, Memory, Initiation , Construction, and Conceptualization skills all fell in the Severely Impaired Range. Overall 92 Attention 2nd perentile Construction 3-5th percentile Initiation 1st percentile Conceptualization 1st percentile Memory 1st percentile Severe deficits noted on this evaluation; Summary of Hospital Course include:: 1. Description of specific treatment plan utilized for patients during their course of treatmen. 2. Summarize the time- course for resolution of acute symptoms and/or regressed behaviors. 3. Describe issues identified and worked on during hospitalization. 4. Describe medication utilized. 5. Describe medical problems identified and treated. 6. Reassessment of suicide risk Summary of Hospital Course: Patient was admitted to the psychiatry unit. Individual and group therapy were provided. Patient was stabilized on Lexapro, Namenda and Amitriptyline. He reports improvement in his mood. We discussed the importance of compliance with treatment and medications. Patient's brother was informed about the patient's cognitive impairments and will assume responsibility for the patient. Patient is psychiatrically stable for discharge at this time. - Diagnosis (1) Dementia with behavioral disturbance Current Visit: Yes Status: Chronic (2) Depressive disorder Current Visit: Yes Status: Chronic - Final Diagnosis (DSM 5) Condition upon Discharge: STABLE DSM 5: Vascular dementia w/ behavioral disturbance; Depressive Disorder Disposition: HOME/ ROUTINE Follow-up Treatment Plan: Vascular dementia w/ behavioral disturbance; Depressive Disorder -Individual and group therapy -Psychoeducation -Continue Lexapro, Amitriptyline and Namenda -Medicine consult -Physical Therapy -Psychology consult -Disposition planning Prescriptions/Medication Reconciliation: Amitriptyline HCl 75 mg PO HS #30 tablet Escitalopram [Lexapro] 10 mg PO DAILY #30 tab Memantine [Namenda] 10 mg PO BID #60 tab - Smoking Cessation Smoking Cessation Medication prescribed: No Reason for not providing: Not indicated - Antipsychotic Medications Pt discharged on 2 or more routine antipsychotic medications: No
== END 2018-02-23 13:15 | disposition home or self-care (01) | DRG 884 ==
LOC: H.ER 18:28 → H.ERHOLD 21:20 → H.STEP 02-18 03:58
PROVIDERS: ADMIT Psychiatry & Neurology Psychiatry; ATTEND Psychiatry & Neurology Psychiatry
PROC: GZHZZZZ Group Psychotherapy (ICD-10-PCS; 2018-02-17)
PROC: 3E0234Z Introduction of Serum, Toxoid and Vaccine into Muscle, Percutaneous Approach (ICD-10-PCS; principal; 2018-02-20)
DX: F01.51 Vascular dementia, unspecified severity, with behavioral disturbance (principal); F32.9 Major depressive disorder, single episode, unspecified; I48.2 Chronic atrial fibrillation; Z79.01 Long term (current) use of anticoagulants; Z23 Encounter for immunization; I10 Essential (primary) hypertension; E78.5 Hyperlipidemia, unspecified; G30.9 Alzheimer's disease, unspecified; Z87.891 Personal history of nicotine dependence; Z85.46 Personal history of malignant neoplasm of prostate